=== PATIENT | female | born 1965 | race Caucasian/White ===

== ENCOUNTER → 2017-02-08 | Outpatient (CLI) | payer BC ==
[~2017-02-08] MED LIST: ALPRAZOLAM0.5 MG PO; ATORVASTATIN CA10 MG PO; JANUVIA PO; LISINOPRIL10 MG PO; METFORMIN HCL500 M2 PO; SERTRALINE HCL50 MG PO; TOPROL XL50 MG PO
[2017-02-08 10:13] LABS: CHOLESTEROL 159 mg/dL (0-200); GLUCOSE FASTING 110 mg/dL (70-110); HDL CHOLESTEROL 56 mg/dL (35-95); LDL CHOLESTEROL 88 mg/dL (-130); LDL/HDL RATIO 2 RATIO (0-4); TRIGLYCERIDES 74 mg/dL (10-160)
== END | disposition home or self-care (01) ==
LOC: CLAB 08:37
PROVIDERS: Surgery
DX: E66.01 Morbid (severe) obesity due to excess calories (principal)
CPT/HCPCS: 36415; 80061; 82947

== ENCOUNTER → 2017-06-20 | Outpatient (CLI) | payer BC ==
[2017-06-20 09:43] LABS: CHOLESTEROL 216 mg/dL (0-200); GLUCOSE FASTING 111 mg/dL (70-110); HDL CHOLESTEROL 59 mg/dL (35-95); LDL/HDL RATIO 2 RATIO (0-4); TRIGLYCERIDES 114 mg/dL (10-160)
[2017-06-20 09:46] LABS: LDL CHOLESTEROL 134 mg/dL (-130)
== END | disposition home or self-care (01) ==
LOC: CLAB 08:23
PROVIDERS: Surgery
DX: Z01.812 Encounter for preprocedural laboratory examination (principal); E66.01 Morbid (severe) obesity due to excess calories
CPT/HCPCS: 36415; 80061; 82947

== ENCOUNTER → 2017-06-20 | Outpatient (CLI) | payer SELFPAY | END | disposition home or self-care (01) | LOC: CBAR 12:40 | DX: E66.01 Morbid (severe) obesity due to excess calories (principal) | CPT/HCPCS: 76000 ==